=== PATIENT | female | born 1945 | race Caucasian/White ===

== ENCOUNTER 2017-12-05 07:27 | Observation (INO) | payer MEDICARE ==
[~2017-12-05] VITALS: Ht 167.6 cm; Wt 80.5 kg
[2017-12-05] VITALS (8 sets, daily range): BP systolic 132–179; BP diastolic 62–84; PULSE 62–79; RESP 16–25; TEMP 98–98.4; O2SAT 95–100
[~2017-12-05 07:27] MED LIST: ALBU8I INH; AMIO200 PO; ATEN-102 PO; CALCTAB80 PO; COUM2.5T PO; DIPH50TA PO; DOCU1CAP39 PO; EPIP0.3I IM; FURO1TAB93 PO; PERC5TAB12 PO; POLY17S PO; POTA1TAB4 PO; VITATAB25 PO
[2017-12-05] MEDS ORDERED: SODIUM CHLORIDE 0.9% FLUSH 10 ML FLUSH IVF PRN (07:45)
--- NOTE | 2017-12-05 08:04 | PD ---
HPI Chief Complaint: Neuro Symptoms/ Deficits Time Seen by Provider: 07:40 Travel History International Travel<30 days: No Contact w/Intl Traveler<30days: No Traveled to known affect area: No History of Present Illness HPI The patient is 72 years old and arrives to the ER by EMS. She woke up this morning with weakness in the left arm and left leg. She fell from bed on account of weakness. She went to sleep at 11 PM feeling normal. The patient woke up at 4 AM. Time of onset of symptoms therefore unknown. Patient has no pain. She reports being being a owl. PFSH Past Medical History Cancer: Yes (LEFT BREAST) Cardiovascular Problems: Yes (HTN, MITRAL VALVE REGURGITATION ) Chemotherapy: Yes Diabetes: No Diminished Hearing: No GERD: Yes Hepatitis: No Hiatal Hernia: No Hypertension: Yes Respiratory: No Immunizations Current: No Thyroid Disease: No Tetanus Vaccination: Unknown Influenza Vaccination: Yes ?: Not Menopausal: Yes Tubal Ligation: Yes Past Surgical History Abdominal Surgery: Yes (APPY) Appendectomy: Yes Cardiac Surgery: Yes (MITRAL VALVE REPAIR 06/2016) Hysterectomy: Yes Mastectomy: Yes (LEFT BREAST WITH RECONSTRUCTION) Oral Surgery: Yes (T & A) Pacemaker: No Social History Alcohol Use: Yes (SOCIALLY WINE) Tobacco Use: No Substance Use: No Allergies-Medications (Allergen,Severity, Reaction): Coded Allergies: No Known Allergies (Unverified Allergy, Unknown, 12/05/17) Reported Meds & Prescriptions Reported Meds & Active Scripts Active Atenolol 25 Mg Tab 25 Mg PO DAILY K-Tab (Potassium Chloride) 20 Meq Tab 20 Tab PO DAILY Lasix (Furosemide) 40 Mg Tab 40 Mg PO DAILY Coumadin 2.5 mg (Warfarin Sodium) Warfarin Sodium 2.5 mg Tab 2.5 Mg PO DAILY keep INR 2.0 Polyethylene Glycol 3350 (Polyethylene Glycol) 3,350 Nf Pow 17 Gm PO DAILY Colace 100 Mg Cap (Docusate Sodium) 100 Mg Cap 100 Mg PO DAILY Cordarone 200 Mg Tab (Amiodarone HCl) 200 Mg Tab 400 Mg PO BID 400mg bid x 5 days, then 200mg bid x 5 days, then 200m daily Reported Vitamin D-[address] (Cholecalciferol) 1,000 Unit Tab 2,000 Unit PO DAILY Ventolin Hfa (Albuterol Sulfate) 8 Gm Aero 2 Puff INH Q4 * SHAKE WELL BEFORE USE * Percocet 5-325 mg (Oxycodone/Acetaminophen) 1 Tab 1 Tab PO BID PRN Epipen (Epinephrine) 0.3 Mg Inj 0.3 Mg IM ONCE PRN Diphenhydramine Hcl (Diphenhydramine HCl) 50 Mg Cap 50 Mg PO HS Calcium 1000 + D (Calcium Carbonate/Cholecalciferol) 1,000MG-800 Tab 1 Tab PO DAILY Atenolol 50 Mg Tab 50 Mg PO DAILY Review of Systems Except as stated in HPI: all other systems reviewed are Neg General / Constitutional: No: Fever Physical Exam Narrative GENERAL: 72-year-old female pleasant well-nourished well-developed SKIN: Warm and dry. HEAD: Atraumatic. Normocephalic. EYES: Pupils equal and round. No scleral icterus. No injection or drainage. ENT: No nasal bleeding or discharge. Mucous membranes pink and moist. NECK: Trachea midline. No JVD. CARDIOVASCULAR: Regular rate and rhythm. RESPIRATORY: No accessory muscle use. Clear to auscultation. Breath sounds equal bilaterally. GASTROINTESTINAL: Abdomen soft, non-tender, nondistended. Hepatic and splenic margins not palpable. MUSCULOSKELETAL: Extremities without clubbing, cyanosis, or edema. No obvious deformities. NEUROLOGICAL: Normal speech memory and mentation. Cranial nerves III through XII normal. Right upper or right lower extremity demonstrate normal motor function with a very marginal active motor weakness on the left side, most noticeable with pronator drift assessment, handgrip and elevation of the left leg. PSYCHIATRIC: Appropriate mood and affect; insight and judgment normal. Data Data Last Documented VS Vital Signs Date Time Temp Pulse Resp B/P (MAP) Pulse Ox O2 Delivery O2 Flow Rate FiO2 12/05/17 07:52 69 25 179/84 (115) 100 Nasal Cannula 2.00 12/05/17 07:36 98.0 VS reviewed Orders Orders Electrocardiogram (12/05/17 07:40) Prothrombin Time / Inr (Pt) (12/05/17 07:40) Act Partial Throm Time (Ptt) (12/05/17 07:40) Complete Blood Count With Diff (12/05/17 07:40) Comprehensive Metabolic Panel (12/05/17 07:40) Drug Screen, Random Urine (12/05/17 07:40) Urinalysis - C+S If Indicated (12/05/17 07:40) Ct Brain W/O Iv Contrast(Rout) (12/05/17 07:40) Chest, Single Ap (12/05/17 07:40) Ecg Monitoring (12/05/17 07:40) Iv Access Insert/Monitor (12/05/17 07:40) Oximetry (12/05/17 07:40) Blood Glucose (12/05/17 07:40) Sodium Chloride 0.9% Flush (Ns Flush) (12/05/17 07:45) Urine Culture (12/05/17 07:55) Admit Order (Ed Use Only) (12/05/17 ) [place] [employer] / Telemetry OSVALDO.Q8H (12/05/17 10:05) Vital Signs (Adult) Q4H (12/05/17 10:05) Labs Laboratory Tests Test 12/05/17 07:55 White Blood Count 4.8 TH/MM3 Red Blood Count 4.31 MIL/MM3 Hemoglobin 14.5 GM/DL Hematocrit 42.5 % Mean Corpuscular Volume 98.8 FL Mean Corpuscular Hemoglobin 33.6 PG Mean Corpuscular Hemoglobin Concent 34.0 % Red Cell Distribution Width 13.8 % Platelet Count 121 TH/MM3 Mean Platelet Volume 12.3 FL Neutrophils (%) (Auto) 58.8 % Lymphocytes (%) (Auto) 26.9 % Monocytes (%) (Auto) 10.8 % Eosinophils (%) (Auto) 3.2 % Basophils (%) (Auto) 0.3 % Neutrophils # (Auto) 2.8 TH/MM3 Lymphocytes # (Auto) 1.3 TH/MM3 Monocytes # (Auto) 0.5 TH/MM3 Eosinophils # (Auto) 0.2 TH/MM3 Basophils # (Auto) 0.0 TH/MM3 CBC Comment DIFF FINAL Differential Comment Prothrombin Time 10.5 SEC Prothromb Time International Ratio 1.0 RATIO Activated Partial Thromboplast Time 26.2 SEC Urine Color LIGHT-YELLOW Urine Turbidity CLEAR Urine pH 5.5 Urine Specific [place] 1.008 Urine Protein NEG mg/dL Urine Glucose (UA) NEG mg/dL Urine Ketones NEG mg/dL Urine Occult Blood NEG Urine Nitrite NEG Urine Bilirubin NEG Urine Urobilinogen LESS THAN 2.0 MG/DL Urine Leukocyte Esterase LARGE Urine RBC 4 /hpf Urine WBC 9 /hpf Urine Squamous Epithelial Cells 7 /hpf Urine Bacteria RARE /hpf Urine Mucus FEW /lpf Microscopic Urinalysis Comment CATH-CULTURE IND Blood Urea Nitrogen 11 MG/DL Creatinine 0.68 MG/DL Random Glucose 131 MG/DL Total Protein 7.1 GM/DL Albumin 3.8 GM/DL Calcium Level 8.2 MG/DL Alkaline Phosphatase 56 U/L Aspartate Amino Transf (AST/SGOT) 25 U/L Alanine Aminotransferase (ALT/SGPT) 39 U/L Total Bilirubin 0.6 MG/DL Sodium Level 140 MEQ/L Potassium Level 4.0 MEQ/L Chloride Level 106 MEQ/L Carbon Dioxide Level 27.0 MEQ/L Anion Gap 7 MEQ/L Estimat Glomerular Filtration Rate 86 ML/MIN Urine Opiates Screen NEG Urine Barbiturates Screen NEG Urine Amphetamines Screen NEG Urine Benzodiazepines Screen NEG Urine Cocaine Screen NEG Urine Cannabinoids Screen NEG MDM Medical Decision Making Medical Screen Exam Complete: Yes Emergency Medical Condition: Yes Medical Record Reviewed: Yes Differential Diagnosis Stroke, TIA, metabolic disarray, polyneuropathy Narrative Course Patient arrives with right upper and lower extremity weakness. The workup is essentially unremarkable. Evaluation for possible stroke is considered necessary. Discussed with Dr Melendez for [facility]. Diagnosis Primary Impression: CVA (cerebral vascular accident) Qualified Codes: I63.9 - Cerebral infarction, unspecified Admitting Information Admitting Physician Requests: Admit Scripts Atenolol (Atenolol) 25 Mg Tab 25 MG PO DAILY for Blood Pressure Management, #30 TAB Prov: Renea Melendez MD R2 12/05/17 Harjinder Fernandez MD Dec 05, 2017 08:04
[2017-12-05 08:23] LABS: AUTOMATED NEUTROPHIL # 2.8 TH/MM3 (1.8-7.7); BASOPHIL % 0.3 % (0.0-2.0); EOSINOPHIL # 0.2 TH/MM3 (0-0.4); EOSINOPHIL % 3.2 % (0.0-4.0); HEMATOCRIT 42.5 % (35.0-46.0); HEMOGLOBIN 14.5 GM/DL (11.6-15.3); LYMPH % 26.9 % (9.0-44.0); LYMPHOCYTE # 1.3 TH/MM3 (1.0-4.8); MEAN CELL VOLUME 98.8 FL (80.0-100.0); MEAN CORPUSCULAR HEMOGLOBIN 33.6 PG (27.0-34.0); MEAN PLATELET VOLUME 12.3 FL (7.0-11.0); MONO % 10.8 % (0.0-8.0); MONOCYTE # 0.5 TH/MM3 (0-0.9); NEUT % 58.8 % (16.0-70.0); PLATELET COUNT 121 TH/MM3 (150-450); RED BLOOD COUNT 4.31 MIL/MM3 (4.00-5.30); RED CELL DISTRIBUTION WIDTH 13.8 % (11.6-17.2); WHITE BLOOD COUNT 4.8 TH/MM3 (4.0-11.0)
[2017-12-05 08:34] LABS: PROTHROMBIN TIME - PATIENT 10.5 SEC (9.8-11.6)
[2017-12-05 08:40] LABS: ALBUMIN 3.8 GM/DL (3.4-5.0); AST (GOT) 25 U/L (15-37); BLOOD UREA NITROGEN 11 MG/DL (7-18); CALCIUM 8.2 MG/DL (8.5-10.1); CHLORIDE 106 MEQ/L (98-107); CREATININE 0.68 MG/DL (0.50-1.00); GLOMERULAR FILTRATION RATE 86 ML/MIN (>89); GLUCOSE,RANDOM 131 MG/DL (74-106); SODIUM (NA) 140 MEQ/L (136-145)
[2017-12-05 08:41] LABS: ALT (GPT) 39 U/L (10-53)
--- NOTE | 2017-12-05 08:42 | RADRPT ---
EXAM DATE/TIME: 12/05/2017 08:08 [facility] COMPARISON: No previous studies available for comparison. INDICATIONS : Left sided weakness. RADIATION DOSE: 56.35 CTDIvol (mGy) MEDICAL HISTORY : Cardiovascular disease. Hypertension. Carcinoma, breast. SURGICAL HISTORY : Hysterectomy. Appendectomy.Mitral valve repair ENCOUNTER: Initial ACUITY: 1 day PAIN SCALE: 0/10 LOCATION: cranial TECHNIQUE: Multiple contiguous axial images were obtained of the head. Using automated exposure control and adj ustment of the mA and/or kV according to patient size, radiation dose was kept as low as reasonably a chievable to obtain optimal diagnostic quality images. DICOM format image data is available electro nically for review and comparison. FINDINGS: CEREBRUM: Mild diffuse cerebral volume loss. Prominent periventricular and deep white matter hypodensities. The ventricles are normal for age. No evidence of midline shift, mass lesion, hemorrhage or acute infar ction. No extra-axial fluid collections are seen. POSTERIOR FOSSA: The cerebellum and brainstem are intact. The 4th ventricle is midline. The cerebellopontine angle i s unremarkable. EXTRACRANIAL: The visualized portion of the orbits is intact. SKULL: The calvaria is intact. No evidence of skull fracture. CONCLUSION: 1. Prominent small vessel periventricular white matter ischemic demyelination. 2. No acute intracranial abnormality. Benjie Romero MD on December 05, 2017 at 8:34 Board Certified Radiologist. This report was verified electronically.
[2017-12-05 08:43] LABS: ALKALINE PHOSPHATASE 56 U/L (45-117); TOTAL BILIRUBIN ADULT 0.6 MG/DL (0.2-1.0); TOTAL PROTEIN 7.1 GM/DL (6.4-8.2)
--- NOTE | 2017-12-05 09:03 | RADRPT ---
EXAM DATE/TIME: 12/05/2017 08:38 [facility] COMPARISON: CHEST SINGLE AP, June 15, 2016, 12:23. CHEST SINGLE AP, June 16, 2016, 5 :26. INDICATIONS : Left side weakened motor function and numbness. Low back pain. No known injury. MEDICAL HISTORY : Cardiovascular disease. Hypertension Carcinoma, breast. SURGICAL HISTORY : Hysterectomy. Appendectomy. Mitral valve repair. ENCOUNTER: Initial ACUITY: 1 day PAIN SCORE: 4/10 LOCATION: Lumbar FINDINGS: Interval removal of mediastinal drains and right IJ introducer. Subtle well-defined lucent line near the right lung apex. Lungs otherwise clear. Cardiomedi cell contours are within normal limits. Remain rodriguez of exam is unchanged. CONCLUSION: 1. Subtle well-defined lucency near the right lung apex, likely artifactual. However, a very small ri ght apical pneumothorax can not be exclude. An expiratory view may be obtained if there is continued clinical concern. Alternatively, followup examination may be performed. Benjie Romero MD on December 05, 2017 at 8:58 Board Certified Radiologist. This report was verified electronically.
[2017-12-05 09:30] LABS: BACTERIA, URINE RARE /hpf; BILIRUBIN, URINE NEG (NEG); BLOOD, URINE NEG (NEG); GLUCOSE,URINE NEG (NEG); KETONE, URINE NEG (NEG); MUCUS URINE FEW /lpf (OCC); NITRITE,URINE NEG (NEG); PH, URINE 5.5 (5.0-8.5); SQUAMOUS EPITHELIAL CELL URINE 7 /hpf (0-5); URINE COLOR LIGHT-YELLOW (YELLW/STRAW); URINE LEUKOCYTE ESTERASE LARGE (NEG)
--- NOTE | 2017-12-05 10:09 | HHI.HP ---
[facility] Service Family Medicine Primary Care Physician Ingacio Hardy MD Admission Diagnosis Diagnoses: International Travel<30 Days: No Contact w/Intl Traveler<30days: No Known Affected Area: No History of Present Illness 72 y/o F, woke up at 4AM and "crumpled" out of bed. She felt like she had laid on her left side and it fell asleep. Her leg was very spastic and she felt like it was floppy and she couldn't move it. She felt the same with her left arm. She checked her BP at this time and she was 135/65. She has never experienced an episode like this before. She woke up to go the bathroom and noticed this numbness. She denies any changes in speech/blurry vision. Her sx have only minimally improved since 4AM, and only improvement is seen on the left side. Denies CP, N/V. Denies constipation/diarrhea. She has had a dry cough over the last 2 days. She did feel excessively fatigued yesterday throughout the day yesterday, and she had a headache the last 2 days. Her left arm was aching last night where her mastectomy/lymph node removal was preformed. She felt the aching around 6/ 7PM. She is not left handed but she has been working on a [employer] day and night. She did not take any medications for the aching. She occasionally does experience aching of that arm but it was more than usual last night. Review of Systems Constitutional: DENIES: Weight loss, Chills Eyes: DENIES: Eye inflammation, Eye pain Ears, nose, mouth, throat: DENIES: Nasal discharge, Oral lesions Respiratory: DENIES: Sputum production Cardiovascular: DENIES: Lower Extremity Edema Gastrointestinal: DENIES: Vomiting, Difficulty Swallowing Genitourinary: DENIES: Dysmenorrhea, Dyspareunia Musculoskeletal: DENIES: Muscle aches, Stiffness Integumentary: DENIES: Nail changes, Breast masses Hematologic/lymphatic: DENIES: Lymphadenopathy Immunologic/allergic: DENIES: Urticaria Neurologic: DENIES: Headache Psychiatric: DENIES: Depression Past Family Social History Past Medical History HTN Mitral Valve Replacement in 06/28 Breast Ca 1992 ; mastectomy L-sided lymph node removal 1992, chemo (last rx in 1992) - Oncologist in - last mammogram 2017, WNL Past Surgical History Tonsillectomy Appendectomy BTL for contraceptive reasons Allergies: Coded Allergies: No Known Allergies (Unverified Allergy, Unknown, 12/05/17) Family History Sister: breast Ca Aunts x 2: breast Ca (BRCA testing negative) Dad: pacemaker, of old age Social History live together in in a house, retired , does quiltmaking denies smoking, drinks socially, denies drugs Physical Exam Vital Signs Vital Signs Date Time Temp Pulse Resp B/P (MAP) Pulse Ox O2 Delivery O2 Flow Rate FiO2 12/05/17 07:52 69 25 179/84 (115) 100 Nasal Cannula 2.00 12/05/17 07:36 98.0 70 16 179/80 (113) 100 Room Air 12/05/17 07:36 98.0 69 16 179/80 (113) 100 12/05/17 07:36 100 Room Air Physical Exam GENERAL: This is a well-nourished, well-developed patient, in no apparent distress. SKIN: No rashes, ecchymoses or lesions. Cool and dry. HEAD: Atraumatic. Normocephalic. No temporal or scalp tenderness. EYES: Pupils equal round and reactive. Extraocular motions intact. No scleral icterus. No injection or drainage. ENT: Nose without bleeding, purulent drainage or septal hematoma. Throat without erythema, tonsillar hypertrophy or exudate. Uvula midline. Airway patent. NECK: Trachea midline. No JVD or lymphadenopathy. Supple, nontender, no meningeal signs. CARDIOVASCULAR: Regular rate and rhythm without murmurs, gallops, or rubs. RESPIRATORY: Clear to auscultation. Breath sounds equal bilaterally. No wheezes , rales, or rhonchi. GASTROINTESTINAL: Abdomen soft, non-tender, nondistended. No hepato-splenomegaly , or palpable masses. No guarding. MUSCULOSKELETAL: Extremities without clubbing, cyanosis, or edema. No joint tenderness, effusion, or edema noted. No calf tenderness. Negative Homans sign bilaterally. NEUROLOGICAL: Awake and alert. Cranial nerves II through XII intact. Motor and sensory grossly within normal limits. Five out of 5 muscle strength in all muscle groups. Normal speech. Laboratory Laboratory Tests Test 12/05/17 07:55 White Blood Count 4.8 Red Blood Count 4.31 Hemoglobin 14.5 Hematocrit 42.5 Mean Corpuscular Volume 98.8 Mean Corpuscular Hemoglobin 33.6 Mean Corpuscular Hemoglobin Concent 34.0 Red Cell Distribution Width 13.8 Platelet Count 121 Mean Platelet Volume 12.3 Neutrophils (%) (Auto) 58.8 Lymphocytes (%) (Auto) 26.9 Monocytes (%) (Auto) 10.8 Eosinophils (%) (Auto) 3.2 Basophils (%) (Auto) 0.3 Neutrophils # (Auto) 2.8 Lymphocytes # (Auto) 1.3 Monocytes # (Auto) 0.5 Eosinophils # (Auto) 0.2 Basophils # (Auto) 0.0 CBC Comment DIFF FINAL Differential Comment Prothrombin Time 10.5 Prothromb Time International Ratio 1.0 Activated Partial Thromboplast Time 26.2 Urine Color LIGHT-YELLOW Urine Turbidity CLEAR Urine pH 5.5 Urine Specific [place] 1.008 Urine Protein NEG Urine Glucose (UA) NEG Urine Ketones NEG Urine Occult Blood NEG Urine Nitrite NEG Urine Bilirubin NEG Urine Urobilinogen LESS THAN 2.0 Urine Leukocyte Esterase LARGE Urine RBC 4 Urine WBC 9 Urine Squamous Epithelial Cells 7 Urine Bacteria RARE Urine Mucus FEW Microscopic Urinalysis Comment CATH-CULTURE IND Blood Urea Nitrogen 11 Creatinine 0.68 Random Glucose 131 Total Protein 7.1 Albumin 3.8 Calcium Level 8.2 Alkaline Phosphatase 56 Aspartate Amino Transf (AST/SGOT) 25 Alanine Aminotransferase (ALT/SGPT) 39 Total Bilirubin 0.6 Sodium Level 140 Potassium Level 4.0 Chloride Level 106 Carbon Dioxide Level 27.0 Anion Gap 7 Estimat Glomerular Filtration Rate 86 Urine Opiates Screen NEG Urine Barbiturates Screen NEG Urine Amphetamines Screen NEG Urine Benzodiazepines Screen NEG Urine Cocaine Screen NEG Urine Cannabinoids Screen NEG Date/Time Source Procedure Growth Status 12/05/17 07:55 Urine Catheterized Urine Urine Culture Pending Received Result Diagram: 12/05/17 0755 12/05/17 0755 Septic Shock Reassessment Septic shock perfusion: reassessment completed Caprini VTE Risk Assessment Caprini VTE Risk Assessment: No/Low Risk (score <= 1) Caprini Risk Assessment Model Point Value = 1 Point Value = 2 Point Value = 3 Point Value = 5 Age 41-60 Minor surgery BMI > 25 kg/m2 Swollen legs Varicose veins or History of unexplained or recurrent spontaneous Oral contraceptives or hormone replacement Sepsis (< 1 month) Serious lung disease, including pneumonia (< 1 month) Abnormal pulmonary function Acute myocardial infarction Congestive heart failure (< 1 month) History of inflammatory bowel disease Medical patient at bed rest Age 61-74 Arthroscopic surgery Major open surgery (> 45 min) Laparoscopic surgery (> 45 min) Malignancy Confined to bed (> 72 hours) Immobilizing plaster cast Central venous access Age >= 75 History of VTE Family history of VTE Factor V Leiden Prothrombin [id number] Lupus anticoagulant Anticardiolipin antibodies Elevated serum homocysteine Heparin-induced thrombocytopenia Other congenital or acquired thrombophilia Stroke (< 1 month) Elective arthroplasty Hip, pelvis, or leg fracture Acute spinal cord injury (< 1 month) Prophylaxis Regimen Total Risk Factor Score Risk Level Prophylaxis Regimen 0-1 Low Early ambulation 2 Moderate Order ONE of the following: *Sequential Compression Device (SCD) *Heparin 5000 units SQ BID 3-4 Higher Order ONE of the following medications: *Heparin 5000 units SQ TID *Enoxaparin/Lovenox 40 mg SQ daily (WT < 150 kg, CrCl > 30 mL/min) *Enoxaparin/Lovenox 30 mg SQ daily (WT < 150 kg, CrCl > 10-29 mL/min) *Enoxaparin/Lovenox 30 mg SQ BID (WT < 150 kg, CrCl > 30 mL/min) AND/OR *Sequential Compression Device (SCD) 5 or more Highest Order ONE of the following medications: *Heparin 5000 units SQ TID (Preferred with Epidurals) *Enoxaparin/Lovenox 40 mg SQ daily (WT < 150 kg, CrCl > 30 mL/min) *Enoxaparin/Lovenox 30 mg SQ daily (WT < 150 kg, CrCl > 10-29 mL/min) *Enoxaparin/Lovenox 30 mg SQ BID (WT < 150 kg, CrCl > 30 mL/min) AND *Sequential Compression Device (SCD) Assessment and Plan Assessment and Plan 9-year-old female, past medical history of mitral valve repair, comes in for stroke workup. Code Status Full code Discussed Condition With Dr. Mccarty Problem List: (1) Mitral Valve Repair - quadrangular resection posterior leaflet with reconstruction Status: Acute Plan: History of mitral valve repair in 2016 Follow up echo (2) COPD (chronic obstructive pulmonary disease) ICD Codes: J44.9 - Chronic obstructive pulmonary disease, unspecified Status: Acute Plan: Inhalers when necessary (3) CVA (cerebral vascular accident) ICD Codes: I63.9 - Cerebral infarction, unspecified Status: Acute Plan: Bed rest Fall precautions Head of bed flat 12 hours Permissive hypertension to 200/100 Neuro checks every 4 Bedside swallow study before diet saline at 70 MLS per hour MRI brain without contrast MRA brain without contrast MRA carotids with contrast stat Head CT negative for bleed, aspirin 325 daily Lovenox 40 mg daily Initial EKG normal f/u LFTs Atorvastatin 40 daily Consult neurology f/u Echo (4) fen/ppx Status: Acute Plan: Fluids: Normal saline at 70 MLS per hour Electrolytes: BMP within normal limits Nutrition: Speech eval, then normal diet DVT prophylaxis: Lovenox 40 daily Problem Qualifiers (1) CVA (cerebral vascular accident): Qualified Codes: I63.9 - Cerebral infarction, unspecified Renea Melendez MD R2 Dec 05, 2017 10:09
[2017-12-05] MEDS ORDERED: ATEN25TA PO (10:12)
[2017-12-05] MEDS ORDERED: SODIUM CHLORIDE 0.9% FLUSH 10 ML FLUSH IV FLUSH PRN (10:45)
[2017-12-05] MEDS ORDERED: ENALAPRILAT 1.25 MG/ML VIAL IV PUSH PRN (10:45)
[2017-12-05] MEDS: ATENOLOL 25 MG TAB PO SCH (11:30)
[2017-12-05] MEDS: SODIUM CHLOR 0.9% 1000 ML INJ 1,000 ML IV SCH (11:30)
[2017-12-05] MEDS: ENOXAPARIN SODIUM 40 MG/0.4 ML SYRINGE SQ SCH (11:31)
[2017-12-05] MEDS: ASPIRIN 325 MG TAB PO SCH (11:31)
--- NOTE | 2017-12-05 15:25 | RADRPT ---
EXAM DATE/TIME: 12/05/2017 14:18 [facility] COMPARISON: No previous studies available for comparison. INDICATIONS : Left sided weakness. MEDICAL HISTORY : Carcinoma, breast. SURGICAL HISTORY : Tonsillectomy. Appendectomy. Mastectomy, bilateral. Mitral valve replacement. Tubal ligation. ENCOUNTER: Subsequent ACUITY: 1 day PAIN SCORE: 0/10 LOCATION: head. TECHNIQUE: Multiplanar, multisequence MRI of the brain was performed without contrast. FINDINGS: The examination demonstrates a smaller area of abnormal diffusion signal in the high right posterior parietal white matter. This would be consistent with a small area of cortical infarct. The area of ab normal diffusion signal measures approximately 1.0 x 0.5 CM. No other areas of abnormal signal are se en on the diffusion restriction images. The ventricles are normal in size and configuration. There is fairly diffusely increased T2 signal in the periventricular white matter most consistent with advanced microvascular ischemic demyelinative change. No abnormal intra-or extra-axial fluid collections are seen. The appearance of the posterior fossa is unremarkable. The visualized portion of sinus and orbit are intact. CONCLUSION: 1. Small area of acute cortical infarct in the right parietal white matter. Harjinder Quintana MD on December 05, 2017 at 15:21 Board Certified Radiologist. This report was verified electronically.
--- NOTE | 2017-12-05 16:15 | HHI.FPPN ---
Subjective Remarks Medicine attending note: Very pleasant 72-year-old woman admitted through the emergency room after awakening at 4 AM and feeling like her left arm was "floppy" and she could not control her left leg. Patient presented to the emergency room with findings consistent of left hemiparesis and evaluation has revealed a small area of acute cortical infarct in the right parietal white matter. Patient does have a history of hypertension treated with atenolol 25 mg daily. She states in the past she was on lisinopril which caused an intractable cough and amlodipine which caused ankle swelling. Patient did have a Mitral Valve Repair - quadrangular resection posterior leaflet with reconstruction Annuloplasty with [address] [place] danita ring in June 2016. Was on anticoagulants for 6 weeks postop and then the anticoagulants were discontinued. Patient is a retired cardiovascular nurse, she was hiking out last in the spring when the shortness of breath evolved leading to a diagnosis of 4+ mitral regurgitation. Also has a history of breast cancer treated with a left-sided mastectomy and sentinel lymph node removal, chemotherapy and followed by Dr. Jade Ospina. No evidence of recurrent disease. Objective Vitals Vital Signs Date Time Temp Pulse Resp B/P (MAP) Pulse Ox O2 Delivery O2 Flow Rate FiO2 12/05/17 13:45 98.4 64 18 132/75 (94) 95 12/05/17 13:17 65 20 153/68 (96) 99 12/05/17 11:33 67 19 153/71 (98) 98 Room Air 12/05/17 10:59 79 23 177/80 (112) 99 Room Air 12/05/17 07:52 69 25 179/84 (115) 100 Nasal Cannula 2.00 12/05/17 07:36 98.0 70 16 179/80 (113) 100 Room Air 12/05/17 07:36 98.0 69 16 179/80 (113) 100 12/05/17 07:36 100 Room Air Result Diagram: 12/05/17 0755 12/05/17 0755 Objective Remarks Vital signs noted. Initially elevated now blood pressure 132/75. Pulse 70 per minute and regular. General appearance: Young septuagenarian who is alert and oriented pleasant in conversation, has been at bedside. HEENT: Nonlocalizing. Tongue and uvula are midline. Pulses equal round reactive EOMs intact. Lungs: Clear to auscultation. Cardiac: S1-S2, no S3 or murmurs. Abdomen: Soft and benign, no tenderness, no masses or organomegaly. Neurologic: Cranial nerves II through XII do not specifically localize. There is demonstrated left upper extremity weakness for over 5 and left lower extremity weakness 2-3 over 5. Please refer to the resident was called exam for complete description of details. A/P Assessment and Plan Clinical assessment: Acute right parietal infarct affecting left lower extremity more than left upper extremity with apparent maintenance of neurocognitive abilities. History of hypertension History of mitral valve repair June 2016 for 4+ mitral regurgitation presenting with congestive heart failure History of breast cancer 1993 status post surgery, chemotherapy and followed by oncology with no evidence recurrent disease. Mild thrombocytopenia with platelet count of 121,000 Possible UTI. Patient seen and examined. Case will be reviewed with the resident team. Agree with plan of care is discussed with me and documented in the resident note. Elton Mccarty MD Dec 05, 2017 16:15
--- NOTE | 2017-12-05 16:46 | RADRPT ---
EXAM DATE/TIME: 12/05/2017 14:18 [facility] COMPARISON: MRI BRAIN W/O CONTRAST, December 05, 2017, 14:18. INDICATIONS : Left sided weakness. MEDICAL HISTORY : Carcinoma, breast. SURGICAL HISTORY : Tonsillectomy. Appendectomy. Mastectomy, bilateral. Mitral valve replacement. Tubal ligation. ENCOUNTER: Subsequent ACUITY: 1 day PAIN SCORE: 0/10 LOCATION: head. Please note a normal MRA of the brain does not entirely exclude the possibility of a small aneurysm, nor the possibility of distal intracranial vessel disease. TECHNIQUE: 3D time of flight MRA was performed. Source images, multiplanar STS MIP, and 3D volume MIP reconstru ctions were reviewed. FINDINGS: Anterior circulation: Distal intracranial internal carotid arteries are patent with flow extending to the middle and anteri or cerebral arteries. There is a small caliber right A1 segment with apparent focal occlusion/severe stenosis distally at the junction of the anterior communicating artery. There is opacification of the distal A1 segment through the anterior commuting artery. There is no evidence for aneurysm, vessel t runcation or stenosis, and no evidence for vascular malformation. Posterior circulation: Symmetric distal vertebral arteries with flow extending to basilar artery. Patent right P-comm. Smal l caliber right posterior cerebral artery with likely moderate to severe stenosis proximally. There i s no evidence for aneurysm, vessel truncation or stenosis, and no evidence for vascular malformation. CONCLUSION: 1. Small caliber right A1 segment with apparent focal occlusion versus critical stenosis distally at the junction of the anterior commuting artery. The distal right A1 segment is perfused through the an terior commuting artery. 2. Small caliber right posterior see lower wilks with likely moderate to severe focal proximal stenosi yojana Romero MD on December 05, 2017 at 16:39 Board Certified Radiologist. This report was verified electronically.
--- NOTE | 2017-12-05 17:22 | EKG ---
Date Performed: 12/05/2017 Time Performed: 08:02:19 PTAGE: 72 years EKG: Sinus rhythm NORMAL ECG PREVIOUS TRACING : 06/16/2016 05.45 DOCTOR: Kaycee Byrne Interpretating Date/Time 12/05/2017 17:19:47
[2017-12-05] MEDS ORDERED: GADODIAMIDE PF 287 MG/ML 20 ML VIAL (for RAD MRI) IV PUSH ONE (20:35)
--- NOTE | 2017-12-05 21:04 | RADRPT ---
EXAM DATE/TIME: 12/05/2017 20:18 [facility] COMPARISON: No previous studies available for comparison. INDICATIONS : Stroke. CONTRAST: 20 cc Omniscan (gadodiamide) IV MEDICAL HISTORY : Carcinoma, breast. SURGICAL HISTORY : Tubal ligation. Tonsillectomy. Appendectomy. Mastectomy, bilateral. Mitral valve replacement. ENCOUNTER: Subsequent ACUITY: 1 day PAIN SCORE: 0/10 LOCATION: neck Percent stenosis is calculated using the diameter of the stenotic region over the diameter of the nor mal distal internal carotid artery. TECHNIQUE: Bolus infused MRA of the extracranial circulation was performed using a neurovascular coil. Post pro cessing was performed including rotating subvolume maximum intensity projections of each carotid luigi ry, rotating full volume maximum intensity projections of both carotid arteries, sagittal and coronal sliding thin slab reformations of each carotid artery, and left oblique sliding thin slab reformatio n through the aortic arch to include the origin of the arch branch vessels. FINDINGS: AORTIC ARCH: There is a three vessel origin of the great vessels from the aorta. No evidence of ostial narrowing. RIGHT CAROTID: The common carotid artery is intact. The carotid bulb has a normal configuration without ulceration or narrowing. The internal carotid artery lumen is smooth without stenosis. The external carotid ar fransico is intact. LEFT CAROTID: The common carotid artery is intact. The carotid bulb has a normal configuration without ulceration or narrowing. The internal carotid artery lumen is smooth without stenosis. The external carotid ar fransico is intact. VERTEBRALS: The vertebral arteries have a symmetric diameter. No stenotic lesions are seen. CONCLUSION: Normal examination for a patient of this age. Tone Wild MD on December 05, 2017 at 20:58 Board Certified Radiologist. This report was verified electronically.
[2017-12-05] MEDS: SODIUM CHLORIDE 0.9% FLUSH 10 ML FLUSH IV FLUSH SCH (21:21)
[2017-12-05] MEDS: ATORVASTATIN 40 MG TAB PO SCH (21:21)
[2017-12-06] VITALS (11 sets, daily range): BP systolic 136–160; BP diastolic 65–81; PULSE 59–71; RESP 18; TEMP 97.9–98.2; O2SAT 95–96
[2017-12-06] MEDS: SODIUM CHLOR 0.9% 1000 ML INJ 1,000 ML IV SCH ×2 (04:08→15:11)
[2017-12-06 06:57] LABS: AUTOMATED NEUTROPHIL # 3.4 TH/MM3 (1.8-7.7); BASOPHIL % 0.2 % (0.0-2.0); EOSINOPHIL # 0.1 TH/MM3 (0-0.4); EOSINOPHIL % 1.7 % (0.0-4.0); HEMATOCRIT 42.3 % (35.0-46.0); HEMOGLOBIN 14.2 GM/DL (11.6-15.3); LYMPH % 29.3 % (9.0-44.0); LYMPHOCYTE # 1.7 TH/MM3 (1.0-4.8); MEAN CELL VOLUME 98.4 FL (80.0-100.0); MEAN CORPUSCULAR HEMOGLOBIN 33.2 PG (27.0-34.0); MEAN CORPUSCULAR HGB CONC 33.7 % (32.0-36.0); MONO % 10.5 % (0.0-8.0); MONOCYTE # 0.6 TH/MM3 (0-0.9); NEUT % 58.3 % (16.0-70.0); PLATELET COUNT 116 TH/MM3 (150-450); RED BLOOD COUNT 4.29 MIL/MM3 (4.00-5.30); RED CELL DISTRIBUTION WIDTH 13.9 % (11.6-17.2); WHITE BLOOD COUNT 5.8 TH/MM3 (4.0-11.0)
[2017-12-06 07:21] LABS: ALBUMIN 3.7 GM/DL (3.4-5.0); AST (GOT) 24 U/L (15-37); BICARBONATE 23.6 MEQ/L (21.0-32.0); BLOOD UREA NITROGEN 7 MG/DL (7-18); CALCIUM 8.2 MG/DL (8.5-10.1); CHLORIDE 106 MEQ/L (98-107); CREATININE 0.58 MG/DL (0.50-1.00); GLOMERULAR FILTRATION RATE 103 ML/MIN (>89); GLUCOSE,RANDOM 108 MG/DL (74-106); SODIUM (NA) 139 MEQ/L (136-145)
[2017-12-06 07:22] LABS: ALT (GPT) 33 U/L (10-53)
[2017-12-06 07:32] LABS: ALKALINE PHOSPHATASE 51 U/L (45-117); TOTAL BILIRUBIN ADULT 0.7 MG/DL (0.2-1.0)
--- NOTE | 2017-12-06 08:03 | RADRPT ---
EXAM DATE/TIME: 12/06/2017 07:52 [facility] COMPARISON: CHEST SINGLE AP, December 05, 2017, 8:38. INDICATIONS : Chest pain. Left side weakness. MEDICAL HISTORY : Cardiovascular disease. Hypertension Carcinoma, breast. SURGICAL HISTORY : Hysterectomy. Appendectomy. Mitral valve repair. ENCOUNTER: Subsequent ACUITY: 2 days PAIN SCORE: 2/10 LOCATION: Bilateral chest FINDINGS: PA and lateral views of the chest demonstrate the lungs to be symmetrically aerated without evidence of mass, infiltrate or effusion. Status post median sternotomy. Clips in the left axilla. The cardio mediastinal contours are unremarkable. Osseous structures are intact. CONCLUSION: No acute disease. No definite pneumothorax. Maurice Malin MD on December 06, 2017 at 8:00 Board Certified Radiologist. This report was verified electronically.
[2017-12-06] MEDS: SODIUM CHLORIDE 0.9% FLUSH 10 ML FLUSH IV FLUSH SCH ×3 (10:08→21:00)
[2017-12-06] MEDS: ATENOLOL 25 MG TAB PO SCH (10:08)
[2017-12-06] MEDS: ASPIRIN 325 MG TAB PO SCH (10:08)
[2017-12-06] MEDS ORDERED: POTASSIUM CHLORIDE 20 MEQ CONTROLLED RELEASE TAB PO ONE (10:30)
--- NOTE | 2017-12-06 10:32 | HHI.PR ---
Subjective Remarks No new complaints Still with some LUE and LLE weakness Objective Vitals Vital Signs Date Time Temp Pulse Resp B/P (MAP) Pulse Ox O2 Delivery O2 Flow Rate FiO2 12/06/17 07:30 98.0 66 18 160/74 (102) 95 12/06/17 05:18 98.0 71 18 144/67 (92) 96 12/06/17 04:56 64 12/06/17 00:55 98.2 67 18 146/81 (102) 95 12/05/17 22:07 98.1 64 19 132/62 (85) 96 12/05/17 16:32 62 12/05/17 13:45 98.4 64 18 132/75 (94) 95 12/05/17 13:17 65 20 153/68 (96) 99 12/05/17 11:33 67 19 153/71 (98) 98 Room Air 12/05/17 10:59 79 23 177/80 (112) 99 Room Air 12/06/17 12/06/17 12/07/17 15:00 23:00 07:00 # Bowel Movements 1 Result Diagram: 12/06/17 0545 12/06/17 0545 Other Results Laboratory Tests Test 12/05/17 07:55 12/06/17 05:45 White Blood Count 4.8 TH/MM3 5.8 TH/MM3 Red Blood Count 4.31 MIL/MM3 4.29 MIL/MM3 Hemoglobin 14.5 GM/DL 14.2 GM/DL Hematocrit 42.5 % 42.3 % Mean Corpuscular Volume 98.8 FL 98.4 FL Mean Corpuscular Hemoglobin 33.6 PG 33.2 PG Mean Corpuscular Hemoglobin Concent 34.0 % 33.7 % Red Cell Distribution Width 13.8 % 13.9 % Platelet Count 121 TH/MM3 116 TH/MM3 Mean Platelet Volume 12.3 FL 12.0 FL Neutrophils (%) (Auto) 58.8 % 58.3 % Lymphocytes (%) (Auto) 26.9 % 29.3 % Monocytes (%) (Auto) 10.8 % 10.5 % Eosinophils (%) (Auto) 3.2 % 1.7 % Basophils (%) (Auto) 0.3 % 0.2 % Neutrophils # (Auto) 2.8 TH/MM3 3.4 TH/MM3 Lymphocytes # (Auto) 1.3 TH/MM3 1.7 TH/MM3 Monocytes # (Auto) 0.5 TH/MM3 0.6 TH/MM3 Eosinophils # (Auto) 0.2 TH/MM3 0.1 TH/MM3 Basophils # (Auto) 0.0 TH/MM3 0.0 TH/MM3 CBC Comment DIFF FINAL DIFF FINAL Differential Comment Prothrombin Time 10.5 SEC Prothromb Time International Ratio 1.0 RATIO Activated Partial Thromboplast Time 26.2 SEC Urine Color LIGHT-YELLOW Urine Turbidity CLEAR Urine pH 5.5 Urine Specific [place] 1.008 Urine Protein NEG mg/dL Urine Glucose (UA) NEG mg/dL Urine Ketones NEG mg/dL Urine Occult Blood NEG Urine Nitrite NEG Urine Bilirubin NEG Urine Urobilinogen LESS THAN 2.0 MG/DL Urine Leukocyte Esterase LARGE Urine RBC 4 /hpf Urine WBC 9 /hpf Urine Squamous Epithelial Cells 7 /hpf Urine Bacteria RARE /hpf Urine Mucus FEW /lpf Microscopic Urinalysis Comment CATH-CULTURE IND Blood Urea Nitrogen 11 MG/DL 7 MG/DL Creatinine 0.68 MG/DL 0.58 MG/DL Random Glucose 131 MG/DL 108 MG/DL Total Protein 7.1 GM/DL 7.0 GM/DL Albumin 3.8 GM/DL 3.7 GM/DL Calcium Level 8.2 MG/DL 8.2 MG/DL Alkaline Phosphatase 56 U/L 51 U/L Aspartate Amino Transf (AST/SGOT) 25 U/L 24 U/L Alanine Aminotransferase (ALT/SGPT) 39 U/L 33 U/L Total Bilirubin 0.6 MG/DL 0.7 MG/DL Sodium Level 140 MEQ/L 139 MEQ/L Potassium Level 4.0 MEQ/L 3.4 MEQ/L Chloride Level 106 MEQ/L 106 MEQ/L Carbon Dioxide Level 27.0 MEQ/L 23.6 MEQ/L Anion Gap 7 MEQ/L 9 MEQ/L Estimat Glomerular Filtration Rate 86 ML/MIN 103 ML/MIN Urine Opiates Screen NEG Urine Barbiturates Screen NEG Urine Amphetamines Screen NEG Urine Benzodiazepines Screen NEG Urine Cocaine Screen NEG Urine Cannabinoids Screen NEG Thyroid Stimulating Hormone 3rd Gen 1.690 uIU/ML Imaging Last Impressions Chest X-Ray 12/06/17 0600 Signed Impressions: Service Date/Time: Wednesday, December 06, 2017 07:52 - CONCLUSION: No acute disease. No definite pneumothorax. Maurice Malin MD Head CT 1/23/18 0740 Signed Impressions: Service Date/Time: Tuesday, December 05, 2017 08:08 - CONCLUSION: 1. Prominent small vessel periventricular white matter ischemic demyelination. 2. No acute intracranial abnormality. Benjie Romero MD Neck Magnetic Resonance Angiography 12/05/17 0000 Signed Impressions: Service Date/Time: Tuesday, December 05, 2017 20:18 - CONCLUSION: Normal examination for a patient of this age. Tone Wild MD Head Magnetic Resonance Angiography 12/05/17 0000 Signed Impressions: Service Date/Time: Tuesday, December 05, 2017 14:18 - CONCLUSION: 1. Small caliber right A1 segment with apparent focal occlusion versus critical stenosis distally at the junction of the anterior commuting artery. The distal right A1 segment is perfused through the anterior commuting artery. 2. Small caliber right posterior see lower wilks with likely moderate to severe focal proximal stenosis. Benjie Romero MD Brain MRI 12/05/17 0000 Signed Impressions: Service Date/Time: Tuesday, December 05, 2017 14:18 - CONCLUSION: 1. Small area of acute cortical infarct in the right parietal white matter. Harjinder Quintana MD Objective Remarks General: NAD, AAOx3 Chest: CTA Cardiac: Regular, tachy Abd: +BS, soft ND/NT Ext: No edema, LLE and LUE weakness A/P Problem List: (1) CVA (cerebral vascular accident) ICD Codes: I63.9 - Cerebral infarction, unspecified Status: Acute Plan: - Pt is a 72 y/o female with HTN, hx of breast cancer who was admitted to [facility] on 12/05/17 with complaints of left arm and left leg paresthesia and weakness - Head CT (12/05) --> Prominent small vessel periventricular white matter ischemic demyelination. No acute intracranial abnormality. - MRI Brain (12/05) --> A small area of acute cortical infarct in the right parietal white matter. - MRA brain (12/05) --> Small caliber right A1 segment with apparent focal occlusion versus critical stenosis distally at the junction of the anterior commuting artery. The distal right A1 segment is perfused through the anterior commuting artery. Small caliber right posterior see lower wilks with likely moderate to severe focal proximal stenosis. - Pt was treated initially with Head of bed flat 12 hours and permissive hypertension to 200/100 - Neuro checks every 4 - NS at 70 mL/hr - Pt was started on ASA 325mg po daily, Atorvastatin 40 daily - Atenolol was resumed following admission - Neurology was consulted at admission - Telemetry - 2D echo is ordered - DVT prophylaxis with Lovenox 40 mg daily (2) Mitral Valve Repair - quadrangular resection posterior leaflet with reconstruction Status: Resolved Plan: - Pt s/p Mitral Valve Repair - quadrangular resection posterior leaflet with reconstruction annuloplasty with [address] [place] danita ring in June 2016. - Pt had been on anticoagulants for 6 weeks postop and then the anticoagulants were discontinued. (3) Diastolic CHF ICD Codes: I50.30 - Unspecified diastolic (congestive) heart failure Status: Chronic Plan: - Pt with a reported hx of diastolic dysfunction - Intolerant to JACOBO and ARBs in the past - 2D echo is pending Problem Qualifiers (1) CVA (cerebral vascular accident): Qualified Codes: I63.9 - Cerebral infarction, unspecified Brianda Shelton Dec 06, 2017 10:32
[2017-12-06] MEDS: ENOXAPARIN SODIUM 40 MG/0.4 ML SYRINGE SQ SCH (11:40)
[2017-12-06] MEDS: SULFAMETHOXAZOLE-TRIMETHOPRIM DS 800-160 MG TAB PO SCH (14:11)
--- NOTE | 2017-12-06 14:16 | HHI.FPPN ---
Subjective Remarks Attending medicine note: Discussed earlier today with , she is being transferred back to Medicine B service. Patient's at bedside. Patient relates that she is now able to move her left arm better against gravity , still minimal movement against gravity for the left leg. Discussed the results of the MRI/MRA. There is a vessel visible in the anterior circulation which accounts for the recent right parietal lobe stroke. There is noted in the posterior circulation and narrowed area. Patient is otherwise comfortable, began to discuss discharge and rehabilitation plans. Will consult with [facility] regarding services available. Otherwise, overall doing well. Recall the patient has medical background and asked very appropriate questions. Objective Vitals Vital Signs Date Time Temp Pulse Resp B/P (MAP) Pulse Ox O2 Delivery O2 Flow Rate FiO2 12/06/17 12:30 98.0 60 18 136/65 (88) 96 12/06/17 07:30 98.0 66 18 160/74 (102) 95 12/06/17 05:18 98.0 71 18 144/67 (92) 96 12/06/17 04:56 64 12/06/17 00:55 98.2 67 18 146/81 (102) 95 12/05/17 22:07 98.1 64 19 132/62 (85) 96 12/05/17 16:32 62 I/O 12/05/17 12/05/17 12/05/17 12/06/17 12/06/17 12/06/17 07:00 15:00 23:00 07:00 15:00 23:00 Intake Total 250 ml Output Total 150 ml Balance -150 ml 250 ml Intake Oral 250 ml Output Urine Total 150 ml # Voids 7 # Bowel Movements 1 Result Diagram: 12/06/17 0545 12/06/17 0545 Objective Remarks Vital signs noted. BP 136/65 pulse 60 per minute and regular respirations 18 afebrile. Gen. appearance: Youthful-appearing septuagenarian who has full command of her speech, very appropriate affect, excellent eye contact. HEENT: Nonlocalizing. Extremities: Demonstrates 3-4 over 5 strength in the left upper extremity. 2-3 over 5 in the left lower extremity. A/P Assessment and Plan Clinical assessment: Right high parietal lobe infarct occurring 12/05/17 showing signs of improvement at the bedside today. He shouldn't still will need to have increased strength in her left lower extremity for transition to home. In view of the fact that the patient will be hospitalized for the Next several days depending on improvement, switch to inpatient status. Hypertension controlled Statin started field training manager consult Patient seen and examined. Case reviewed and discussed with resident team. Agree with plan of care is discussed with me and documented in the resident note. Problem List: (1) Mitral Valve Repair - quadrangular resection posterior leaflet with reconstruction Status: Resolved Plan: History of mitral valve repair in 2016 Follow up echo (2) COPD (chronic obstructive pulmonary disease) ICD Codes: J44.9 - Chronic obstructive pulmonary disease, unspecified Status: Acute Plan: Inhalers when necessary (3) CVA (cerebral vascular accident) ICD Codes: I63.9 - Cerebral infarction, unspecified Status: Acute Plan: Bed rest Fall precautions Head of bed flat 12 hours Permissive hypertension to 200/100 Neuro checks every 4 Bedside swallow study before diet saline at 70 MLS per hour MRI brain without contrast MRA brain without contrast MRA carotids with contrast stat Head CT negative for bleed, aspirin 325 daily Lovenox 40 mg daily Initial EKG normal f/u LFTs Atorvastatin 40 daily Consult neurology f/u Echo (4) fen/ppx Status: Acute Plan: Fluids: Normal saline at 70 MLS per hour Electrolytes: BMP within normal limits Nutrition: Speech eval, then normal diet DVT prophylaxis: Lovenox 40 daily Problem Qualifiers (1) CVA (cerebral vascular accident): Qualified Codes: I63.9 - Cerebral infarction, unspecified Elton Mccarty MD Dec 06, 2017 14:16
[2017-12-06] MEDS: ATORVASTATIN 40 MG TAB PO SCH (20:21)
[2017-12-06] MEDS ORDERED: DEXTROSE 50% IN WATER 50 ML VIAL(D50) IV PUSH PRN (20:30)
[2017-12-06] MEDS ORDERED: GLUCAGON 1 MG/ML VIAL OTHER PRN (20:30)
[2017-12-06] MEDS ORDERED: SODIUM CHLORIDE 0.9% FLUSH 10 ML FLUSH IV FLUSH PRN (20:30)
[2017-12-06] MEDS: INSULIN ASPART SUPPLEMENTAL SCALE SQ SCH (21:00)
--- NOTE | 2017-12-06 22:05 | MB ---
cc: ROBERT SILVESTRE MD PHD DATE OF CONSULTATION: 12/06/2017 REASON FOR CONSULTATION: Stroke. HISTORY OF PRESENT ILLNESS: Ms. Magdaleno is a very nice 72 year-old woman previously healthy until yesterday morning when she woke up and the left leg gave way. She fell to the floor, felt weak on the left side. The left arm and left leg was numbness. She had no other difficulties. No vertigo, no speech difficulties. She feels somewhat better today. PAST MEDICAL HISTORY: 1. History of mitral valve repair surgery a year ago. 2. Breast cancer treated with mastectomy. 3. Lymph node removal. 4. Tonsillectomy. 5. Appendectomy. MEDICATIONS Current medications are: 1. Tylenol. 2. Bactrim. 3. Lipitor. 4. Aspirin 325 milligrams daily. 5. Lovenox 40 milligrams subcu daily. 6. Vasotec p.r.n. 7. She states she was not on aspirin at home. NEUROLOGIC EXAMINATION Blood pressure is 137/65, pulse 64, respiratory rate is 18, temperature 97.9 degrees. Higher cortical functions are normal. Cranial nerves intact. Motor exam: she has mild weakness left arm 4+/5 proximal and distal. She has 4/5 strength in the left leg proximal and distal, normal strength in the right arm and right leg, normal sensation. Reflexes 2+ symmetric. MRI of the brain shows a very tiny acute stroke in the right parietal area. No hemorrhage is present. MRA neck is normal with no significant stenosis. MRA of the brain, there is a small right A1 segment. The distal A1 segment on the right is perfused through the anterior communicating artery. Small caliber right posterior cerebral artery. LABORATORY DATA The white count 5800, hemoglobin 14.2, hematocrit 42%, platelets 116,000, PT 10.5, INR 1, APTT 26.2. Sodium is 139, potassium 3.4, chloride 106, CO2 23.6, BUN is 7, creatinine 0.58, GFR 103, glucose 108, AST 24, ALT 32. IMPRESSION Right parietal stroke. RECOMMENDATIONS I agree with aspirin 325 mg daily. Also check echocardiogram. Will check a lipid panel as well. Continue to monitor telemetry, rule out atrial fibrillation. Also recommend physical therapy consult. MD JESUS Hwang /8:19 PM /9:41 PM
[2017-12-06 22:37] LABS: HEMOGLOBIN A1C 5.8 % (4.3-6.0)
[2017-12-07] VITALS (10 sets, daily range): BP systolic 129–145; BP diastolic 60–74; PULSE 63–81; RESP 16–20; TEMP 96.6–98.5; O2SAT 93–97
[2017-12-07] MEDS: SULFAMETHOXAZOLE-TRIMETHOPRIM DS 800-160 MG TAB PO SCH ×2 (01:17→15:07)
[2017-12-07] MEDS: SODIUM CHLOR 0.9% 1000 ML INJ 1,000 ML IV SCH ×4 (01:18→21:20)
[2017-12-07 06:45] LABS: ALBUMIN 3.5 GM/DL (3.4-5.0); AST (GOT) 17 U/L (15-37); BICARBONATE 24.7 MEQ/L (21.0-32.0); BLOOD UREA NITROGEN 8 MG/DL (7-18); CALCIUM 8.1 MG/DL (8.5-10.1); CHLORIDE 107 MEQ/L (98-107); CREATININE 0.65 MG/DL (0.50-1.00); GLOMERULAR FILTRATION RATE 90 ML/MIN (>89); GLUCOSE,RANDOM 92 MG/DL (74-106); SODIUM (NA) 139 MEQ/L (136-145)
[2017-12-07 06:46] LABS: ALT (GPT) 28 U/L (10-53); CHOLESTEROL 133 MG/DL (120-200); TRIGLYCERIDES 89 MG/DL (42-150)
[2017-12-07 06:48] LABS: ALKALINE PHOSPHATASE 51 U/L (45-117); CHOLESTEROL/ HDL RATIO 2.67 RATIO; HDL CHOLESTEROL 49.7 MG/DL (40.0-60.0); LDL CHOLESTEROL 66 MG/DL (0-99); TOTAL BILIRUBIN ADULT 0.6 MG/DL (0.2-1.0); TOTAL PROTEIN 6.7 GM/DL (6.4-8.2)
[2017-12-07] MEDS: INSULIN ASPART SUPPLEMENTAL SCALE SQ SCH ×4 (08:00→21:19)
[2017-12-07] MEDS: ENOXAPARIN SODIUM 40 MG/0.4 ML SYRINGE SQ SCH (10:11)
[2017-12-07] MEDS: ATENOLOL 25 MG TAB PO SCH (10:11)
[2017-12-07] MEDS: ASPIRIN 325 MG TAB PO SCH (10:12)
[2017-12-07] MEDS: SODIUM CHLORIDE 0.9% FLUSH 10 ML FLUSH IV FLUSH SCH ×4 (10:12→21:19)
[2017-12-07] MEDS: ACETAMINOPHEN 325 MG TAB PO PRN (10:14)
--- NOTE | 2017-12-07 11:01 | HHI.FPPN ---
Subjective Remarks Patient seen and examined bedside this morning. Patient states her left-sided weakness is much improved. She has been working with physical therapy and seen great improvement. She has been able to walk with a walker, however at this point she cannot walk by herself. She feels that her strength is back in her left leg but her gait is still abnormal. She is inquiring about the possibility of [facility] rehabilitation versus doing rehabilitation at home. (Renea Melendez MD R2) Objective Vitals Vital Signs Date Time Temp Pulse Resp B/P (MAP) Pulse Ox O2 Delivery O2 Flow Rate FiO2 12/07/17 08:30 97.6 65 16 145/66 (92) 95 12/07/17 07:41 81 12/07/17 04:13 98.3 63 18 129/61 (83) 94 12/07/17 03:09 65 12/07/17 00:43 98.5 79 18 145/74 (97) 97 12/06/17 21:39 98.1 66 18 148/68 (94) 95 12/06/17 19:43 21 12/06/17 17:02 97.9 64 18 137/65 (89) 96 12/06/17 16:55 67 12/06/17 14:10 65 155/69 (97) 12/06/17 12:30 98.0 60 18 136/65 (88) 96 12/06/17 12:20 59 I/O 12/06/17 12/06/17 12/06/17 12/07/17 12/07/17 12/07/17 07:00 15:00 23:00 07:00 15:00 23:00 Intake Total 250 ml Balance 250 ml Intake Oral 250 ml # Voids 7 5 # Bowel Movements 1 (Renea Melendez MD R2) Result Diagram: 12/06/17 0545 12/07/17 0532 Objective Remarks Vital signs noted and stable Gen. appearance: full command of her speech, very appropriate affect, excellent eye contact. No Facial droop HEENT: Nonlocalizing. Lungs: Clear to auscultation Cardiac: Regular rate and rhythm, no murmurs rubs or gallops Extremities: 4/5 strength in left upper extremity, 5 out of 5 strength in left lower extremity, compared to 5 out of 5 strength throughout on right side. No erythema or edema of extremities (Renea Melendez MD R2) A/P Assessment and Plan Clinical assessment: Right high parietal lobe infarct occurring 12/05/17 showing signs of improvement Discharge Planning Plan for discharge today pending placement (Renea Melendez MD R2) Assessment and Plan Attending clinical assessment: Patient was seen and examined. Case reviewed and discussed with resident team. Agree with plan of care is discussed with me and documented in the resident note. Specifically discussed her improving left- sided weakness, plans for discharge, medications on discharge, follow-up with Dr. Hardy Patient seen and examined on the morning of December 07, 2017. Case reviewed and discussed with resident team. Agree with plan of care is discussed with me and documented in the resident note. (Elton Mccarty MD) Problem List: (1) Mitral Valve Repair - quadrangular resection posterior leaflet with reconstruction Status: Resolved Plan: History of mitral valve repair in 2016 Follow up echo (2) COPD (chronic obstructive pulmonary disease) ICD Codes: J44.9 - Chronic obstructive pulmonary disease, unspecified Status: Acute Plan: Inhalers when necessary (3) CVA (cerebral vascular accident) ICD Codes: I63.9 - Cerebral infarction, unspecified Status: Acute Plan: Bed rest Fall precautions Head of bed flat 12 hours Permissive hypertension to 200/100 Neuro checks every 4 Bedside swallow study before diet saline at 70 MLS per hour MRI brain without contrast MRA brain without contrast MRA carotids with contrast stat Head CT negative for bleed, aspirin 325 daily Lovenox 40 mg daily Initial EKG normal LFTs normal Atorvastatin 40 daily Consult neurology, appreciate recommendations f/u Echo (4) fen/ppx Status: Acute Plan: Fluids: Normal saline at 70 MLS per hour Electrolytes: BMP within normal limits Nutrition: Speech eval, then normal diet DVT prophylaxis: Lovenox 40 daily (Renea Melendez MD R2) Problem Qualifiers (1) CVA (cerebral vascular accident): Qualified Codes: I63.9 - Cerebral infarction, unspecified Renea Melendez MD R2 Dec 07, 2017 11:01 Elton Mccarty MD Dec 07, 2017 17:44
[2017-12-07] MEDS ORDERED: ATOR40TA16 PO (11:17)
[2017-12-07] MEDS ORDERED: SULF1TAB23 PO (11:17)
--- NOTE | 2017-12-07 11:18 | HHI.DCPOC ---
Discharge Care Plan Diagnosis: (1) CVA (cerebral vascular accident) (2) COPD (chronic obstructive pulmonary disease) (3) Mitral Valve Repair - quadrangular resection posterior leaflet with reconstruction Goals to Promote Your Health * To prevent worsening of your condition and complications * To maintain your health at the optimal level Directions to Meet Your Goals Take your medications as prescribed Follow your dietary instruction Follow activity as directed Keep your appointments as scheduled Take your immunizations and boosters as scheduled If your symptoms worsen call your PCP, if no PCP go to Urgent Care Center or Emergency Room Smoking is Dangerous to Your Health. Avoid second hand smoke Call the 24-hour hour crisis hotline for domestic abuse at Renea Melendez MD R2 Dec 07, 2017 11:18
[2017-12-07] MEDS ORDERED: ASA325 PO (12:41)
--- NOTE | 2017-12-07 18:14 | ECHRPT ---
Indication: cardiomyopathy CONCLUSIONS Normal left ventricular size. The left ventricular systolic function is low normal with an estimated ejection fraction in the rang e of 50- 55%. Trace mitral valve regurgitation. Aortic valve sclerosis is present. No aortic valve regurgitation. No aortic valve stenosis. There is mild tricuspid valve regurgitation. The estimated pulmonary arterial pressure is 31 mmHg. BP: 179 / 84 HR: Rhythm: MEASUREMENTS (Male / Female) Normal Values Technical Quality:Good 2D ECHO LV Diastolic Diameter PLAX 3.7 cm 4.2 - 5.9 / 3.9 - 5.3 cm LV Systolic Diameter PLAX 2.9 cm IVS Diastolic Thickness 1.5 cm 0.6 - 1.0 / 0.6 - 0.9 cm LVPW Diastolic Thickness 1.0 cm 0.6 - 1.0 / 0.6 - 0.9 cm LV Relative Wall Thickness 0.7 RV Internal Dim ED PLAX 2.9 cm M-MODE Aortic Root Diameter MM 3.3 cm LA Systolic Diameter MM 3.4 cm LA Ao Ratio MM 1.0 AV Cusp Separation MM 1.9 cm DOPPLER MV Area PHT 1.8 cm Mitral E Point Velocity 122.0 cm/s Mitral A Point Velocity 121.0 cm/s Mitral E to A Ratio 1.0 LV E' Lateral Velocity 8.4 cm/s Mitral E to LV E' Lateral Ratio 14.6 LV E' Septal Velocity 6.2 cm/s Mitral E to LV E' Septal Ratio 19.6 TR Peak Velocity 229.0 cm/s TR Peak Gradient 21.0 mmHg Right Atrial Pressure 10.0 mmHg Pulmonary Artery Systolic Pressu 31.0 mmHg Right Ventricular Systolic Press 31.0 mmHg FINDINGS LEFT VENTRICLE Normal left ventricular size. The left ventricular systolic function is low normal with an estimated ejection fraction in the rang e of 50- 55%. The left ventricular systolic function is hyperdynamic with an estimated ejection fraction in the ra nge of 65- 70% RIGHT VENTRICLE Normal right ventricular size and systolic function. LEFT ATRIUM The left atrial size is normal. RIGHT ATRIUM The right atrial size is normal. ATRIAL SEPTUM Normal atrial septal thickness without atrial level shunting by limited color doppler interrogation. AORTA The aortic root and proximal ascending aorta are normal in size on limited imaging. MITRAL VALVE MV repair 2016 Trace mitral valve regurgitation. MVA 1.7cm2 AORTIC VALVE Aortic valve sclerosis is present. No aortic valve regurgitation. No aortic valve stenosis. TRICUSPID VALVE Structurally normal tricuspid valve. There is mild tricuspid valve regurgitation. The estimated pulmonary arterial pressure is 31 mmHg. PULMONARY VALVE No pulmonary valve regurgitation or stenosis. VESSELS The inferior vena cava is normal in size. PERICARDIUM No pericardial effusion. Julian Fuentes MD (Electronically Signed) Final Date:07 December 2017 18:13
--- NOTE | 2017-12-07 20:39 | HHI.PR ---
Review/Management Diagnosis small right parietal cva--improving exam Plan continue aspirin and statin recommend outpatient cardiology evaluation to consider [employer] monitor to r/o afib after discharge Diagnosis/Plan: Subjective Subjective Comments No acute events reported She reports improvement in left leg strength--able to walk with walker Active Medications Current Medications Medications (Trade) Dose Ordered Sig/[place] Route Start Time Stop Time Status Last Admin (Tenormin) 25 mg DAILY PO 12/05/17 10:15 12/07/17 10:11 (Aspirin) 325 mg DAILY PO 12/05/17 10:45 12/07/17 10:12 (NS Flush) 2 ml UNSCH PRN IV FLUSH 12/05/17 10:45 (NS Flush) 2 ml BID IV FLUSH 12/05/17 21:00 12/06/17 10:08 Sodium Chloride 1,000 ml @ 70 mls/hr [id number] IV 12/05/17 10:35 12/06/17 15:11 (Lovenox Inj) 40 mg Q24H SQ 12/05/17 11:00 12/07/17 10:11 (Vasotec Inj) 1.25 mg Q6H PRN IV PUSH 12/05/17 10:45 (Lipitor) 40 mg HS PO 12/05/17 21:00 12/06/17 20:21 (Bactrim Ds 800-160 Mg) 1 tab Q12H PO 12/06/17 13:00 12/07/17 15:07 (Tylenol) 650 mg Q6H PRN PO 12/06/17 14:45 12/07/17 10:14 (NS Flush) 2 ml BID IV FLUSH 12/06/17 21:00 (NS Flush) 2 ml UNSCH PRN IV FLUSH 12/06/17 20:30 Sodium Chloride 1,000 ml @ 70 mls/hr [id number] IV 12/06/17 20:21 12/07/17 01:18 (NovoLOG SUPPLEMENTAL SCALE) 1 ACHS SQ 12/06/17 21:00 (D50w (Vial) Inj) 50 ml UNSCH PRN IV PUSH 12/06/17 20:30 (Glucagon Inj) 1 mg UNSCH PRN OTHER 12/06/17 20:30 Allergies Allergies Coded Allergies No Known Allergies (Unverified Allergy, Unknown, 12/05/17) Exam I&O / VS 12/07/17 12/07/17 12/08/17 14:59 22:59 06:59 Intake Total 240 ml Balance 240 ml Intake Oral 240 ml # Voids 5 Vital Signs Date Time Temp Pulse Resp B/P (MAP) Pulse Ox O2 Delivery O2 Flow Rate FiO2 12/07/17 18:00 73 12/07/17 16:00 96.6 65 20 137/68 (91) 96 12/07/17 12:48 63 18 129/60 (83) 93 12/07/17 08:30 97.6 65 16 145/66 (92) 95 12/07/17 07:41 81 12/07/17 04:13 98.3 63 18 129/61 (83) 94 12/07/17 03:09 65 12/07/17 00:43 98.5 79 18 145/74 (97) 97 12/06/17 21:39 98.1 66 18 148/68 (94) 95 Exam Comments alert, speech normal CN intact MOTOR 5/5 BUE. 5/5 RLE. 4+/5 LLE Objective Radiology Results MRA neck--normal Micro and Labs Laboratory Tests Test 12/07/17 05:32 Blood Urea Nitrogen 8 Creatinine 0.65 Random Glucose 92 Total Protein 6.7 Albumin 3.5 Calcium Level 8.1 Alkaline Phosphatase 51 Aspartate Amino Transf (AST/SGOT) 17 Alanine Aminotransferase (ALT/SGPT) 28 Total Bilirubin 0.6 Sodium Level 139 Potassium Level 3.8 Chloride Level 107 Carbon Dioxide Level 24.7 Anion Gap 7 Estimat Glomerular Filtration Rate 90 Triglycerides Level 89 Cholesterol Level 133 LDL Cholesterol 66 HDL Cholesterol 49.7 Cholesterol/HDL Ratio 2.67 Date/Time Source Procedure Growth Status 12/05/17 07:55 Urine Catheterized Urine Urine Culture - Final Escherichia Coli Complete Diagnostic Tests ECHOcardiogram--normal Dyllan Matta MD PhD Dec 07, 2017 20:39
[2017-12-07] MEDS: ATORVASTATIN 40 MG TAB PO SCH (21:19)
[2017-12-08 00:29] VITALS: BP 126/58; PULSE 70; RESP 18; TEMP 98.3; O2SAT 95
[2017-12-08 00:30] VITALS: PULSE 73
[2017-12-08] MEDS: SULFAMETHOXAZOLE-TRIMETHOPRIM DS 800-160 MG TAB PO SCH ×2 (00:38→13:13)
[2017-12-08] MEDS: ACETAMINOPHEN 325 MG TAB PO PRN (00:38)
[2017-12-08] MEDS: SODIUM CHLOR 0.9% 1000 ML INJ 1,000 ML IV SCH ×2 (00:58→10:05)
[2017-12-08 04:15] VITALS: PULSE 62
[2017-12-08 08:00] VITALS: PULSE 64
[2017-12-08] MEDS: INSULIN ASPART SUPPLEMENTAL SCALE SQ SCH ×2 (08:00→12:00)
[2017-12-08] MEDS: ATENOLOL 25 MG TAB PO SCH (09:00)
[2017-12-08] MEDS: SODIUM CHLORIDE 0.9% FLUSH 10 ML FLUSH IV FLUSH SCH ×2 (09:00)
[2017-12-08 09:08] VITALS: BP 143/77; PULSE 68; RESP 20; TEMP 98.2; O2SAT 96
[2017-12-08] MEDS: ASPIRIN 325 MG TAB PO SCH (09:32)
--- NOTE | 2017-12-08 10:39 | HHI.FPPN ---
Subjective Remarks Patient seen and examined at bedside. No acute events overnight. Patient stated she is doing well. She has been able to ambulate with walker while working with PT. Strength of left leg and left arm have improved since admission however still has work to do to regain full function. Patient denies chest pain, shortness of breath, nausea vomiting, dysuria or abdominal pain. No other complaints. (Carla Miranda MD, R1) Objective Vitals Vital Signs Date Time Temp Pulse Resp B/P (MAP) Pulse Ox O2 Delivery O2 Flow Rate FiO2 12/08/17 09:08 98.2 68 20 143/77 (99) 96 12/08/17 08:00 64 12/08/17 04:15 62 12/08/17 00:30 73 12/08/17 00:29 98.3 70 18 126/58 (80) 95 12/07/17 21:22 98.1 67 18 137/63 (87) 96 12/07/17 20:00 96 12/07/17 18:00 73 12/07/17 16:00 96.6 65 20 137/68 (91) 96 12/07/17 12:48 63 18 129/60 (83) 93 I/O 12/07/17 12/07/17 12/07/17 12/08/17 12/08/17 12/08/17 07:00 15:00 23:00 07:00 15:00 23:00 Intake Total 240 ml Balance 240 ml Intake Oral 240 ml # Voids 5 (Carla Miranda MD, R1) Result Diagram: 12/06/17 0545 12/07/17 0532 Imaging Last Impressions Chest X-Ray 12/06/17 0600 Signed Impressions: Service Date/Time: Wednesday, December 06, 2017 07:52 - CONCLUSION: No acute disease. No definite pneumothorax. Maurice Malin MD Head CT 12/05/17 0740 Signed Impressions: Service Date/Time: Tuesday, December 05, 2017 08:08 - CONCLUSION: 1. Prominent small vessel periventricular white matter ischemic demyelination. 2. No acute intracranial abnormality. Benjie Romero MD Neck Magnetic Resonance Angiography 12/05/17 0000 Signed Impressions: Service Date/Time: Tuesday, December 05, 2017 20:18 - CONCLUSION: Normal examination for a patient of this age. Tone Wild MD Head Magnetic Resonance Angiography 12/05/17 0000 Signed Impressions: Service Date/Time: Tuesday, December 05, 2017 14:18 - CONCLUSION: 1. Small caliber right A1 segment with apparent focal occlusion versus critical stenosis distally at the junction of the anterior commuting artery. The distal right A1 segment is perfused through the anterior commuting artery. 2. Small caliber right posterior see lower wilks with likely moderate to severe focal proximal stenosis. Benjie Romero MD Brain MRI 12/05/17 0000 Signed Impressions: Service Date/Time: Tuesday, December 05, 2017 14:18 - CONCLUSION: 1. Small area of acute cortical infarct in the right parietal white matter. Harjinder Quintana MD Objective Remarks Vital signs noted and stable Gen. appearance: full command of her speech, very appropriate affect, excellent eye contact. No Facial droop HEENT: Nonlocalizing. Lungs: Clear to auscultation Cardiac: Regular rate and rhythm, no murmurs rubs or gallops Extremities: 4/5 strength in left upper extremity, 5 out of 5 strength in left lower extremity, compared to 5 out of 5 strength throughout on right side. No erythema or edema of extremities (Carla Miranda MD, R1) A/P Assessment and Plan Attending clinical assessment: Patient was seen and examined. Case reviewed and discussed with resident team. Agree with plan of care is discussed with me and documented in the resident note. Specifically discussed her improving left- sided weakness, plans for discharge, medications on discharge, follow-up with Dr. Hardy Discharge Planning Plan for discharge today. Home with home health. Placement in [place] was not approved. (Carla Miranda MD, R1) Assessment and Plan Patient seen and examined on the morning of December 08, 2017 with the resident team.. Case reviewed and discussed with resident team. Agree with plan of care is discussed with me and documented in the resident note. (Elton Mccarty MD) Problem List: (1) Mitral Valve Repair - quadrangular resection posterior leaflet with reconstruction Status: Resolved Plan: History of mitral valve repair in 2016 Follow up echo (2) COPD (chronic obstructive pulmonary disease) ICD Codes: J44.9 - Chronic obstructive pulmonary disease, unspecified Status: Acute Plan: Inhalers when necessary (3) CVA (cerebral vascular accident) ICD Codes: I63.9 - Cerebral infarction, unspecified Status: Acute Plan: Permissive hypertension to 200/100 Neuro checks every 4 MRI brain without contrast: Mild area of acute cortical infarct in the right parietal white matter. MRA brain without contrast: Focal occlusion versus critical stenosis distally at the junction of the anterior communicating artery. The distal right A1 segment is perfused through the anterior communicating artery. MRA carotids with contrast stat: Normal Head CT negative for bleed, aspirin 325 daily Lovenox 40 mg daily Initial EKG normal LFTs normal Atorvastatin 40 daily Consult neurology, appreciate recommendations -Patient will obtain Holter monitor provided by [facility] Echo: (4) fen/ppx Status: Acute Plan: Fluids: Normal saline at 70 MLS per hour Electrolytes: BMP within normal limits Nutrition: Heart healthy DVT prophylaxis: Lovenox 40 daily (Carla Miranda MD, R1) Problem Qualifiers (1) CVA (cerebral vascular accident): Qualified Codes: I63.9 - Cerebral infarction, unspecified Carla Miranda MD, R1 Dec 08, 2017 10:39 Elton Mccarty MD Dec 10, 2017 12:55
--- NOTE | 2017-12-08 10:45 | HHI.FF ---
Face to Face Verification Diagnosis: (1) UTI (urinary tract infection) (2) CVA (cerebral vascular accident) (3) Stroke Physical Therapy Order: Evaluate and Treat, Improve ambulation, Strength and gait training Occupational Therapy Order: Evaluate and Treat, Gross motor coordination, Fine motor coordination Home Health Nursing Order: Medical education Signs/symptoms of disease process Medication education-adverse effect Nursing assessment with vital signs Assistant Construction Superintendent Order: To Evaluate: Support services Order: To Provide: Community services I have seen patient Miriam Magdaleno on 12/08/17. My clinical findings support the need for the requested home health care services because: Ltd mobility - disease progression I certify that my clinical findings support that this patient is homebound because: Unsteady gait/balance Carla Miranda MD, R1 Dec 08, 2017 10:45 Elton Mccarty MD Dec 08, 2017 15:11
[2017-12-08] MEDS: ENOXAPARIN SODIUM 40 MG/0.4 ML SYRINGE SQ SCH (11:00)
[2017-12-08 13:58] VITALS: BP 140/60; PULSE 66; RESP 20; TEMP 97.9; O2SAT 96
== END 2017-12-08 15:23 | disposition home or self-care (01) ==
LOC: NEPE 07:27 → NEDA 10:07 → NEPGCP 13:23
PROVIDERS: ADMIT Family Medicine; ATTEND Family Medicine
DX: I63.9 Cerebral infarction, unspecified (principal); J44.9 Chronic obstructive pulmonary disease, unspecified; I34.0 Nonrheumatic mitral (valve) insufficiency; I11.0 Hypertensive heart disease with heart failure; I50.30 Unspecified diastolic (congestive) heart failure; N39.0 Urinary tract infection, site not specified; B96.20 Unspecified Escherichia coli [E. coli] as the cause of diseases classified elsewhere; D69.6 Thrombocytopenia, unspecified; K21.9 Gastro-esophageal reflux disease without esophagitis; Z95.2 Presence of prosthetic heart valve; Z79.82 Long term (current) use of aspirin; Z85.3 Personal history of malignant neoplasm of breast; Z90.710 Acquired absence of both cervix and uterus; W06.XXXA Fall from bed, initial encounter
CPT/HCPCS: 70450; 70544; 70548; 70551; 71045; 71046; 80053; 80061; 80307; 81001; 82948; 83036; 84443; 85025; 85610; 85730; 87077; 87086; 87186; 93005; 93306; 96360; 96361; 96372; 97110; 97116; 97162; 97167; 99285; A9579; G0378; G8987; G8988; J1650; J7030